=== PATIENT | male | born 1965 | race Caucasian/White ===

== ENCOUNTER 2017-07-06 15:33 | Emergency (ER) | payer SELFPAY ==
[~2017-07-06] VITALS: Ht 167.6 cm; Wt 65.9 kg
[2017-07-06] MEDS ORDERED: MAGNESIUM SULFATE 2 GM, MVI, ADULT NO.1 WITH VIT K 10 ML, THIAMINE HCL 100 MG, FOLIC AC... IV ONE ×5 (16:00)
[2017-07-06 17:40] VITALS: BP 112/68
== END 2017-07-06 19:23 | disposition home or self-care (01) ==
LOC: EMS 15:34
DX: F10.229 Alcohol dependence with intoxication, unspecified (principal); S00.511A Abrasion of lip, initial encounter; Y90.8 Blood alcohol level of 240 mg/100 ml or more; W18.39XA Other fall on same level, initial encounter; Y93.89 Activity, other specified; Y92.89 Other specified places as the place of occurrence of the external cause; Y99.8 Other external cause status
CPT/HCPCS: 96365; 99285; G0480; J3411; J3475; J3490 ×2; J7030

== ENCOUNTER 2017-09-01 11:47 | Emergency (ER) | payer SELFPAY ==
[~2017-09-01] VITALS: Ht 172.7 cm; Wt 72.5 kg
[2017-09-01] MEDS ORDERED: ACYCLOVIR 200 MG CAPSULE PO ONE (12:45)
[2017-09-01 12:51] LABS: BASOPHILS % (AUTO) 3.1 % (0.0-2.0); EOSINOPHILS % (AUTO) 1.4 % (1.0-6.0); HEMATOCRIT 25.2 % (41-53); HEMOGLOBIN 8.3 g/dL (13.5-17.5); LYMPHOCYTES # (AUTO) 0.8 K/uL (1.0-4.8); MEAN CORPUSCULAR HEMOGLOBIN 28.9 pg (26.0-34.0); MEAN CORPUSCULAR VOLUME 88 fL (80-100); MONOCYTES # (AUTO) 0.4 K/uL (0.1-1.0); MONOCYTES % (AUTO) 8.5 % (2.0-9.0); NEUTROPHILS # (AUTO) 3.3 K/uL (1.8-7.7); RED BLOOD CELL COUNT(AUTO) 2.88 MIL/uL (4.50-5.90); RED CELL DISTRIBUTION WIDTH 15.8 % (11.5-14.5)
[2017-09-01 12:56] LABS: ANION GAP 12 mmol/L (8-16); CALCIUM, TOTAL 7.9 mg/dL (8.8-10.5); CARBON DIOXIDE 27 mmol/L (22-29); CHLORIDE 101 mmol/L (98-107); GLOMERULAR FILTR. RATE CALC > 60 mL/min (>60); GLUCOSE,RANDOM 96 mg/dL (70-110); POTASSIUM 3.7 mmol/L (3.5-5.1); SODIUM SERUM 140 mmol/L (136-145); UREA NITROGEN, BLOOD 8 mg/dL (7-18)
[2017-09-01 13:02] LABS: ALANINE AMINOTRANSFERASE 32 U/L (12-78); ALBUMIN 3.3 g/dL (3.4-5.0); ALKALINE PHOSPHATASE 76 U/L (46-116); ASPARTATE AMINOTRANSFERASE 76 U/L (15-37); BILIRUBIN,TOTAL 0.3 mg/dL (0.1-1.0)
[2017-09-01 13:38] LABS: PLATELET COUNT (AUTO) 60 K/uL (150-450)
[2017-09-01 16:12] VITALS: BP 118/78
== END 2017-09-01 17:03 | disposition home or self-care (01) ==
LOC: EMS 11:50
DX: F10.129 Alcohol abuse with intoxication, unspecified (principal); B00.1 Herpesviral vesicular dermatitis; D64.9 Anemia, unspecified; Z59.0 Homelessness
CPT/HCPCS: 36415; 80053; 85025; 99284; G0480

== ENCOUNTER 2017-09-06 18:53 | Emergency (ER) | payer SELFPAY ==
[~2017-09-06] VITALS: Ht 172.7 cm; Wt 79.5 kg
[2017-09-06 19:03] VITALS: BP 140/80
== END 2017-09-06 23:39 | disposition left against medical advice (07) ==
LOC: EMS 18:54
DX: F10.129 Alcohol abuse with intoxication, unspecified (principal); Z53.21 Procedure and treatment not carried out due to patient leaving prior to being seen by health care provider

== ENCOUNTER 2017-09-08 17:51 | Emergency (ER) | payer SELFPAY ==
[~2017-09-08] VITALS: Ht 170.2 cm; Wt 65.9 kg
[2017-09-08] MEDS ORDERED: BACITRACIN 0.9 GM PACKET OINTMENT TP ONE (18:30)
[2017-09-08 18:43] LABS: GLUCOSE,POINT OF CARE 96 MG/DL (70-110)
[2017-09-08 18:56] VITALS: BP 138/86
== END 2017-09-08 19:04 | disposition home or self-care (01) ==
LOC: EMS 17:52
DX: S00.511A Abrasion of lip, initial encounter (principal); F10.229 Alcohol dependence with intoxication, unspecified; X58.XXXA Exposure to other specified factors, initial encounter; Y93.89 Activity, other specified; Y92.89 Other specified places as the place of occurrence of the external cause; Y99.8 Other external cause status
CPT/HCPCS: 99283

== ENCOUNTER 2017-09-13 08:41 | Inpatient (IN) | payer SELFPAY ==
[~2017-09-13] VITALS: Ht 167.6 cm; Wt 67.3 kg
[2017-09-13] MEDS ORDERED: MAGNESIUM SULFATE 2 GM, MVI, ADULT NO.1 WITH VIT K 10 ML, THIAMINE HCL 100 MG, FOLIC AC... IV ONE ×5 (09:00)
[2017-09-13 09:08] LABS: GLUCOSE,POINT OF CARE 95 MG/DL (70-110)
[2017-09-13 09:14] LABS: HEMATOCRIT 25.7 % (41-53); HEMOGLOBIN 8.3 g/dL (13.5-17.5); MEAN CORPUSCULAR HEMOGLOBIN 27.5 pg (26.0-34.0); MEAN CORPUSCULAR HGB CONC 32.3 G/dL (31.0-37.0); MEAN CORPUSCULAR VOLUME 85 fL (80-100); PLATELET COUNT (AUTO) 101 K/uL (150-450); RED BLOOD CELL COUNT(AUTO) 3.02 MIL/uL (4.50-5.90); RED CELL DISTRIBUTION WIDTH 16.1 % (11.5-14.5)
[2017-09-13 09:27] LABS: INR 1.3 (0.9-1.1); PROTHROMBIN TIME 13.7 SEC (9.4-11.6)
[2017-09-13 09:31] LABS: ALANINE AMINOTRANSFERASE 89 U/L (12-78); ALBUMIN 2.8 g/dL (3.4-5.0); ALKALINE PHOSPHATASE 112 U/L (46-116); ANION GAP 21 mmol/L (8-16); ASPARTATE AMINOTRANSFERASE 311 U/L (15-37); BILIRUBIN,TOTAL 1.1 mg/dL (0.1-1.0); CALCIUM, TOTAL 8.5 mg/dL (8.8-10.5); CARBON DIOXIDE 17 mmol/L (22-29); CHLORIDE 85 mmol/L (98-107); CREATININE 1.85 mg/dL (0.60-1.30); GLOMERULAR FILTR. RATE CALC 38 mL/min (>60); GLUCOSE,RANDOM 101 mg/dL (70-110); POTASSIUM 3.2 mmol/L (3.5-5.1); TOTAL PROTEIN, SERUM 7.7 g/dL (6.4-8.2); UREA NITROGEN, BLOOD 16 mg/dL (7-18)
[2017-09-13 09:33] LABS: BAND NEUTROPHILS % (MANUAL) 22 % (0-5); LYMPHOCYTES % (MANUAL) 2 % (22-44); MONOCYTES % (MANUAL) 6 % (2-9); SEGMENTED NEUTROPHILS % 70 % (40-70)
[2017-09-13 09:34] LABS: SODIUM SERUM 123 mmol/L (136-145)
[2017-09-13] MEDS ORDERED: SODIUM CHLORIDE 0.9% 1,000 ML IV ONE (10:15)
[2017-09-13 10:16] LABS: AMPHET/METH SCREEN,URINE NEGATIVE (NEGATIVE); BARBITURATE SCREEN, URINE NEGATIVE (NEGATIVE); BENZODIAZEPINES SCREEN,URINE NEGATIVE (NEGATIVE); CANNABINOID SCREEN,URINE NEGATIVE (NEGATIVE); COCAINE SCREEN,URINE NEGATIVE (NEGATIVE); METHADONE SCREEN, URINE NEGATIVE (NEGATIVE); OPIATE SCREEN,URINE NEGATIVE (NEGATIVE)
[2017-09-13 10:17] LABS: PHENCYCLIDINE SCREEN,URINE NEGATIVE (NEGATIVE)
[2017-09-13 10:20] LABS: BILIRUBIN,URINE NEGATIVE (NEGATIVE); GLUCOSE, URINE (UA) NEGATIVE (NEGATIVE); KETONES,URINE NEGATIVE (NEGATIVE); LEUKOCYTE ESTERASE ,URINE SMALL (NEGATIVE); NITRATE,URINE NEGATIVE (NEGATIVE); OCCULT BLOOD,URINE LARGE (NEGATIVE); PROTEIN,URINE SEE CONFIRM (NEGATIVE)
[2017-09-13 10:21] LABS: APPEARANCE,URINE HAZY (CLEAR)
[2017-09-13 10:31] LABS: SULFOSALICYLIC ACID,URINE 3+ (Negative)
[2017-09-13 10:32] LABS: BACTERIA,URINE Many /HPF (None Seen); SQUAMOUS EPITHELIAL CELL,UR Few /LPF (None Seen)
[2017-09-13] MEDS ORDERED: CefTRIAXone SODIUM 1 GM in DEXTROSE 5%-WATER 10 ML IV ONE ×2 (10:45→11:00)
[2017-09-13] MEDS ORDERED: BISACODYL 10 MG RECTAL RECTAL SUPPOSITORY PR PRN (11:00)
[2017-09-13] MEDS ORDERED: ONDANSETRON HCL 4 MG/2 ML VIAL IVP PRN (11:00)
[2017-09-13] MEDS ORDERED: MAGNESIUM HYDROXIDE SUSPENSION 30 ML UDCUP PO PRN (11:00)
[2017-09-13] MEDS ORDERED: ZOLPIDEM TARTRATE 5 MG TABLET PO PRN (11:00)
[2017-09-13 13:24] LABS: CALCIUM, TOTAL 8.3 mg/dL (8.8-10.5); CREATININE 1.45 mg/dL (0.60-1.30); POTASSIUM 3.6 mmol/L (3.5-5.1)
[2017-09-13 13:30] VITALS: BP 156/94
[2017-09-13 13:38] LABS: THYROID STIMULATING HORMONE 1.4 uIU/mL (0.36-3.74)
[2017-09-13] MEDS: ACETAMINOPHEN 325 MG TABLET PO PRN (14:25)
[2017-09-13 16:00] VITALS: BP 110/74
[2017-09-13 16:26] LABS: CREATININE,URINE RANDOM 35.4 mg/dL (30.0-125.0)
[2017-09-13 20:00] VITALS: BP 105/69
[2017-09-13] MEDS: DOCUSATE SODIUM 100 MG CAPSULE PO SCH (20:17)
[2017-09-14] VITALS: BP 138/80
[2017-09-14] MEDS: ACETAMINOPHEN 325 MG TABLET PO PRN ×2 (03:28→18:31)
[2017-09-14 04:00] VITALS: BP 131/82
[2017-09-14 05:21] LABS: HEMATOCRIT 24.3 % (41-53); HEMOGLOBIN 7.9 g/dL (13.5-17.5); MEAN CORPUSCULAR HEMOGLOBIN 27.6 pg (26.0-34.0); MEAN CORPUSCULAR HGB CONC 32.6 G/dL (31.0-37.0); MEAN CORPUSCULAR VOLUME 85 fL (80-100); PLATELET COUNT (AUTO) 79 K/uL (150-450); RED BLOOD CELL COUNT(AUTO) 2.88 MIL/uL (4.50-5.90)
[2017-09-14 05:39] LABS: CALCIUM, TOTAL 8.2 mg/dL (8.8-10.5); CREATININE 1.44 mg/dL (0.60-1.30)
[2017-09-14 07:11] LABS: BAND NEUTROPHILS % (MANUAL) 26 % (0-5); LYMPHOCYTES % (MANUAL) 1 % (22-44); MONOCYTES % (MANUAL) 3 % (2-9); SEGMENTED NEUTROPHILS % 70 % (40-70)
[2017-09-14] MEDS ORDERED: SODIUM CHLORIDE 0.9% 250 ML IV ONE ×3 (07:55→09:47)
[2017-09-14] MEDS: LEVOFLOXACIN 750 MG/D5% WATER 150 ML IV SCH (07:57)
[2017-09-14] MEDS: POTASSIUM CHL 10 MEQ/WATER 50 ML IV SCH ×4 (07:57→14:25)
[2017-09-14 08:00] VITALS: BP 113/76
[2017-09-14] MEDS ORDERED: *CLINICAL-LEVOFLOXACIN IVPB DOSING CLINICAL ONE (08:00)
[2017-09-14] MEDS: DOCUSATE SODIUM 100 MG CAPSULE PO SCH ×2 (08:03→20:27)
[2017-09-14] MEDS: PANTOPRAZOLE SODIUM 40 MG DR TABLET PO SCH (08:03)
[2017-09-14 12:00] VITALS: BP 128/79
[2017-09-14] MEDS: SODIUM CHLORIDE 0.9% 1,000 ML IV SCH (12:57)
[2017-09-14] MEDS ORDERED: LORazepam 2 MG/ML VIAL IVP PRN (15:00)
[2017-09-14 16:00] VITALS: BP 135/83
[2017-09-14 20:00] VITALS: BP 116/71
[2017-09-15] VITALS (7 sets, daily range): BP systolic 114–154; BP diastolic 66–91
[2017-09-15] MEDS: SODIUM CHLORIDE 0.9% 1,000 ML IV SCH (03:18)
[2017-09-15 04:59] LABS: HEMOGLOBIN 8.2 g/dL (13.5-17.5); MEAN CORPUSCULAR HEMOGLOBIN 27.6 pg (26.0-34.0); MEAN CORPUSCULAR HGB CONC 32.8 G/dL (31.0-37.0); MEAN CORPUSCULAR VOLUME 84 fL (80-100); PLATELET COUNT (AUTO) 96 K/uL (150-450); RED BLOOD CELL COUNT(AUTO) 2.97 MIL/uL (4.50-5.90); RED CELL DISTRIBUTION WIDTH 16.2 % (11.5-14.5)
[2017-09-15 05:26] LABS: BAND NEUTROPHILS % (MANUAL) 23 % (0-5); LYMPHOCYTES % (MANUAL) 5 % (22-44); MONOCYTES % (MANUAL) 7 % (2-9); SEGMENTED NEUTROPHILS % 65 % (40-70)
[2017-09-15 05:28] LABS: PLATELET MORPHOLOGY COMMENT LARGE PLTS PRESENT
[2017-09-15 05:34] LABS: ANION GAP 8 mmol/L (8-16); CALCIUM, TOTAL 8.2 mg/dL (8.8-10.5); CARBON DIOXIDE 23 mmol/L (22-29); CHLORIDE 95 mmol/L (98-107); CREATINE KINASE MB 1.2 ng/mL (0-5); CREATINE KINASE, TOTAL 358 U/L (39-308); GLOMERULAR FILTR. RATE CALC 58 mL/min (>60); GLUCOSE,RANDOM 96 mg/dL (70-110); SODIUM SERUM 126 mmol/L (136-145); UREA NITROGEN, BLOOD 27 mg/dL (7-18)
[2017-09-15] MEDS: DOCUSATE SODIUM 100 MG CAPSULE PO SCH ×2 (07:28→20:15)
[2017-09-15] MEDS: LEVOFLOXACIN 750 MG/D5% WATER 150 ML IV SCH (07:34)
[2017-09-15] MEDS: PANTOPRAZOLE SODIUM 40 MG DR TABLET PO SCH (07:53)
[2017-09-15] MEDS: MORPHINE SULFATE 2 MG/ML SYRINGE IVP PRN (09:46)
[2017-09-15] MEDS ORDERED: POTASSIUM CHLORIDE 20 MEQ ER TABLET PO ONE (10:30)
[2017-09-15] MEDS: SODIUM CHLORIDE 1 GM TABLET PO SCH ×2 (10:53→20:15)
[2017-09-15] MEDS: HYDROCODONE/ACETAMINOPHEN 5-325 MG TABLET PO PRN (10:53)
[2017-09-15] MEDS ORDERED: MAGNESIUM SULFATE 2 GM, MVI, ADULT NO.1 WITH VIT K 10 ML, THIAMINE HCL 100 MG, FOLIC AC... IV ONE ×5 (12:30)
[2017-09-15] MEDS: ChlordiazePOXIDE HCL 25 MG CAPSULE PO SCH ×3 (13:22→22:43)
[2017-09-15] MEDS: LORazepam 2 MG/ML VIAL IVP PRN ×3 (14:31→22:44)
[2017-09-16] VITALS: BP 146/75
[2017-09-16] MEDS ORDERED: SODIUM CHLORIDE 0.9% 100 ML ONE (02:14)
[2017-09-16] MEDS: LORazepam 2 MG/ML VIAL IVP PRN ×5 (03:15→21:29)
[2017-09-16 04:00] VITALS: BP 144/99
[2017-09-16 05:22] LABS: ANION GAP 8 mmol/L (8-16); CALCIUM, TOTAL 8.4 mg/dL (8.8-10.5); CARBON DIOXIDE 23 mmol/L (22-29); CHLORIDE 104 mmol/L (98-107); CREATININE 1.18 mg/dL (0.60-1.30); GLOMERULAR FILTR. RATE CALC > 60 mL/min (>60); GLUCOSE,RANDOM 99 mg/dL (70-110); POTASSIUM 3.1 mmol/L (3.5-5.1); SODIUM SERUM 135 mmol/L (136-145); UREA NITROGEN, BLOOD 27 mg/dL (7-18)
[2017-09-16 05:33] LABS: HEMATOCRIT 23.9 % (41-53); HEMOGLOBIN 7.8 g/dL (13.5-17.5); MEAN CORPUSCULAR HEMOGLOBIN 27.8 pg (26.0-34.0); MEAN CORPUSCULAR HGB CONC 32.8 G/dL (31.0-37.0); MEAN CORPUSCULAR VOLUME 85 fL (80-100); PLATELET COUNT (AUTO) 84 K/uL (150-450); RED BLOOD CELL COUNT(AUTO) 2.82 MIL/uL (4.50-5.90); RED CELL DISTRIBUTION WIDTH 16.1 % (11.5-14.5)
[2017-09-16] MEDS: LEVOFLOXACIN 750 MG/D5% WATER 150 ML IV SCH (06:42)
[2017-09-16] MEDS: ChlordiazePOXIDE HCL 25 MG CAPSULE PO SCH ×4 (06:43→23:59)
[2017-09-16] MEDS: DOCUSATE SODIUM 100 MG CAPSULE PO SCH ×2 (07:16→21:29)
[2017-09-16 07:47] LABS: BAND NEUTROPHILS % (MANUAL) 9 % (0-5); EOSINOPHILS % (MANUAL) 3 % (1-6); LYMPHOCYTES % (MANUAL) 8 % (22-44); MONOCYTES % (MANUAL) 15 % (2-9); SEGMENTED NEUTROPHILS % 65 % (40-70)
[2017-09-16 08:00] VITALS: BP 150/94
[2017-09-16] MEDS: PANTOPRAZOLE SODIUM 40 MG DR TABLET PO SCH (08:27)
[2017-09-16] MEDS: SODIUM CHLORIDE 1 GM TABLET PO SCH (08:27)
[2017-09-16] MEDS: HYDROCODONE/ACETAMINOPHEN 5-325 MG TABLET PO PRN (08:27)
[2017-09-16] MEDS: MORPHINE SULFATE 2 MG/ML SYRINGE IVP PRN (09:17)
[2017-09-16] MEDS ORDERED: POTASSIUM CHLORIDE 20 MEQ ER TABLET PO ONE ×3 (11:30→16:15)
[2017-09-16 12:00] VITALS: BP 132/93
[2017-09-16 15:40] LABS: ANION GAP 10 mmol/L (8-16); CALCIUM, TOTAL 8.4 mg/dL (8.8-10.5); CARBON DIOXIDE 22 mmol/L (22-29); CHLORIDE 107 mmol/L (98-107); CREATININE 1.21 mg/dL (0.60-1.30); GLOMERULAR FILTR. RATE CALC > 60 mL/min (>60); GLUCOSE,RANDOM 112 mg/dL (70-110); PHOSPHORUS 2.4 mg/dL (2.5-4.9); POTASSIUM 3.3 mmol/L (3.5-5.1); SODIUM SERUM 139 mmol/L (136-145); UREA NITROGEN, BLOOD 25 mg/dL (7-18)
[2017-09-16 16:00] VITALS: BP 126/71
[2017-09-16] MEDS ORDERED: SODIUM PHOS,M-BASIC-D-BASIC 30 MMOL in DEXTROSE 5%-WATER 250 ML IV ONE (16:30)
[2017-09-16 20:00] VITALS: BP 148/94
[2017-09-16] MEDS: THIAMINE HCL 100 MG TABLET PO SCH (21:29)
[2017-09-16] MEDS ORDERED: SODIUM CHLORIDE 0.9% 250 ML IV ONE (23:42)
[2017-09-17] VITALS (10 sets, daily range): BP systolic 121–139; BP diastolic 73–90
[2017-09-17] MEDS: LORazepam 2 MG/ML VIAL IVP PRN (02:05)
[2017-09-17] MEDS: MORPHINE SULFATE 2 MG/ML SYRINGE IVP PRN (03:00)
[2017-09-17] MEDS: ChlordiazePOXIDE HCL 25 MG CAPSULE PO SCH ×3 (05:06→17:59)
[2017-09-17 06:06] LABS: ALANINE AMINOTRANSFERASE 68 U/L (12-78); ALBUMIN 1.8 g/dL (3.4-5.0); ALKALINE PHOSPHATASE 121 U/L (46-116); ANION GAP 10 mmol/L (8-16); ASPARTATE AMINOTRANSFERASE 96 U/L (15-37); BILIRUBIN,TOTAL 1.1 mg/dL (0.1-1.0); CALCIUM, TOTAL 8.2 mg/dL (8.8-10.5); CARBON DIOXIDE 21 mmol/L (22-29); CHLORIDE 111 mmol/L (98-107); CREATININE 1.22 mg/dL (0.60-1.30); GLOMERULAR FILTR. RATE CALC > 60 mL/min (>60); GLUCOSE,RANDOM 104 mg/dL (70-110); POTASSIUM 3.7 mmol/L (3.5-5.1); SODIUM SERUM 142 mmol/L (136-145); TOTAL PROTEIN, SERUM 6.3 g/dL (6.4-8.2); UREA NITROGEN, BLOOD 22 mg/dL (7-18)
[2017-09-17] MEDS: LEVOFLOXACIN 750 MG/D5% WATER 150 ML IV SCH (06:26)
[2017-09-17] MEDS: FOLIC ACID 1 MG TABLET PO SCH (09:38)
[2017-09-17] MEDS: PANTOPRAZOLE SODIUM 40 MG DR TABLET PO SCH (09:38)
[2017-09-17] MEDS: DOCUSATE SODIUM 100 MG CAPSULE PO SCH ×2 (09:38→21:12)
[2017-09-17] MEDS: POTASSIUM CHLORIDE 10 MEQ ER TABLET PO SCH (09:41)
[2017-09-17] MEDS: THIAMINE HCL 100 MG TABLET PO SCH (21:12)
[2017-09-18] MEDS: ChlordiazePOXIDE HCL 25 MG CAPSULE PO SCH ×5 (00:32→23:50)
[2017-09-18] MEDS ORDERED: SODIUM CHLORIDE 0.9% 50 ML ONE (04:11)
[2017-09-18 04:14] VITALS: BP 124/85
[2017-09-18] MEDS: HYDROCODONE/ACETAMINOPHEN 5-325 MG TABLET PO PRN (04:20)
[2017-09-18] MEDS: LEVOFLOXACIN 750 MG/D5% WATER 150 ML IV SCH (06:31)
[2017-09-18 07:19] VITALS: BP 136/86
[2017-09-18] MEDS: FOLIC ACID 1 MG TABLET PO SCH (08:17)
[2017-09-18] MEDS: POTASSIUM CHLORIDE 10 MEQ ER TABLET PO SCH (08:17)
[2017-09-18] MEDS: DOCUSATE SODIUM 100 MG CAPSULE PO SCH ×2 (08:17→20:30)
[2017-09-18] MEDS: PANTOPRAZOLE SODIUM 40 MG DR TABLET PO SCH (08:17)
[2017-09-18 11:41] VITALS: BP 127/78
[2017-09-18 15:27] VITALS: BP 136/80
[2017-09-18 19:25] VITALS: BP 128/72
[2017-09-18] MEDS: THIAMINE HCL 100 MG TABLET PO SCH (20:30)
[2017-09-18 23:35] VITALS: BP 124/77
[2017-09-19 04:57] VITALS: BP 121/78
[2017-09-19] MEDS: ChlordiazePOXIDE HCL 25 MG CAPSULE PO SCH ×3 (06:07→18:06)
[2017-09-19] MEDS: LEVOFLOXACIN 750 MG/D5% WATER 150 ML IV SCH (06:13)
[2017-09-19 07:50] VITALS: BP 115/70
[2017-09-19] MEDS: POTASSIUM CHLORIDE 10 MEQ ER TABLET PO SCH (08:07)
[2017-09-19] MEDS: DOCUSATE SODIUM 100 MG CAPSULE PO SCH ×2 (08:08→20:00)
[2017-09-19] MEDS: PANTOPRAZOLE SODIUM 40 MG DR TABLET PO SCH (08:08)
[2017-09-19] MEDS: FOLIC ACID 1 MG TABLET PO SCH (08:08)
[2017-09-19 10:34] VITALS: BP 119/79
[2017-09-19 15:20] VITALS: BP 115/70
[2017-09-19 16:08] LABS: BASOPHILS % (AUTO) 0.6 % (0.0-2.0); EOSINOPHILS % (AUTO) 1.3 % (1.0-6.0); HEMATOCRIT 22.6 % (41-53); HEMOGLOBIN 7.3 g/dL (13.5-17.5); LYMPHOCYTES # (AUTO) 0.8 K/uL (1.0-4.8); LYMPHOCYTES % (AUTO) 8.1 % (22.0-44.0); MEAN CORPUSCULAR HEMOGLOBIN 27.1 pg (26.0-34.0); MEAN CORPUSCULAR HGB CONC 32.4 G/dL (31.0-37.0); MEAN CORPUSCULAR VOLUME 84 fL (80-100); MONOCYTES # (AUTO) 1.2 K/uL (0.1-1.0); MONOCYTES % (AUTO) 11.6 % (2.0-9.0); NEUTROPHILS % (AUTO) 78.4 % (40.0-70.0); PLATELET COUNT (AUTO) 300 K/uL (150-450); RED BLOOD CELL COUNT(AUTO) 2.71 MIL/uL (4.50-5.90)
[2017-09-19 16:26] LABS: ANION GAP 9 mmol/L (8-16); CARBON DIOXIDE 25 mmol/L (22-29); CHLORIDE 107 mmol/L (98-107); CREATININE 1.08 mg/dL (0.60-1.30); GLOMERULAR FILTR. RATE CALC > 60 mL/min (>60); GLUCOSE,RANDOM 110 mg/dL (70-110); POTASSIUM 4.5 mmol/L (3.5-5.1); SODIUM SERUM 141 mmol/L (136-145); UREA NITROGEN, BLOOD 15 mg/dL (7-18)
[2017-09-19 16:28] LABS: CREATININE,URINE RANDOM 72.1 mg/dL (30.0-125.0)
[2017-09-19 16:31] LABS: ALANINE AMINOTRANSFERASE 71 U/L (12-78); ALBUMIN 1.8 g/dL (3.4-5.0); ALKALINE PHOSPHATASE 154 U/L (46-116); ASPARTATE AMINOTRANSFERASE 88 U/L (15-37); BILIRUBIN,TOTAL 0.7 mg/dL (0.1-1.0); TOTAL PROTEIN, SERUM 6.9 g/dL (6.4-8.2)
[2017-09-19] MEDS: THIAMINE HCL 100 MG TABLET PO SCH (20:00)
[2017-09-19 20:01] VITALS: BP 112/72
[2017-09-19 23:54] LABS: FOLATE SERUM 20.8 ng/mL (5.4-); VITAMIN B12 LEVEL > 2000 pg/mL (211-911)
[2017-09-19 23:55] VITALS: BP 131/83
[2017-09-20] MEDS: ChlordiazePOXIDE HCL 25 MG CAPSULE PO SCH ×3 (01:42→10:41)
[2017-09-20] MEDS ORDERED: SODIUM CHLORIDE 0.9% 250 ML IV ONE (04:11)
[2017-09-20 05:07] VITALS: BP 105/69
[2017-09-20] MEDS: LEVOFLOXACIN 750 MG/D5% WATER 150 ML IV SCH (05:51)
[2017-09-20 06:29] LABS: % IRON SATURATION 9.1 % (30-44); IRON, SERUM 21 mcg/dL (50-175); TOTAL IRON BINDING CAPACITY 230 mcg/dL (250-450)
[2017-09-20 07:24] VITALS: BP 107/69
[2017-09-20] MEDS: FOLIC ACID 1 MG TABLET PO SCH (08:14)
[2017-09-20] MEDS: DOCUSATE SODIUM 100 MG CAPSULE PO SCH (08:14)
[2017-09-20] MEDS: PANTOPRAZOLE SODIUM 40 MG DR TABLET PO SCH (08:14)
[2017-09-20] MEDS: POTASSIUM CHLORIDE 10 MEQ ER TABLET PO SCH (08:14)
[2017-09-20] MEDS ORDERED: SOD FERRIC GLUC COMPLX/SUCROSE 125 MG in SODIUM CHLORIDE 0.9% 100 ML IV SCH (10:00)
[2017-09-20 11:26] VITALS: BP 109/71
[2017-09-20 12:04] LABS: ANION GAP 11 mmol/L (8-16); CALCIUM, TOTAL 7.9 mg/dL (8.8-10.5); CARBON DIOXIDE 22 mmol/L (22-29); CHLORIDE 107 mmol/L (98-107); CREATININE 1.04 mg/dL (0.60-1.30); GLOMERULAR FILTR. RATE CALC > 60 mL/min (>60); GLUCOSE,RANDOM 93 mg/dL (70-110); POTASSIUM 4.3 mmol/L (3.5-5.1); SODIUM SERUM 140 mmol/L (136-145); UREA NITROGEN, BLOOD 16 mg/dL (7-18)
[2017-09-20 16:24] VITALS: BP 106/76
[2017-09-20] MEDS ORDERED: LIB25 PO ×2 (16:51)
[2017-09-20] MEDS ORDERED: THIA100T67 PO (16:52)
[2017-09-20] MEDS ORDERED: FOLI1 PO (16:53)
[2017-09-20] MEDS ORDERED: ChlordiazePOXIDE HCL 25 MG CAPSULE PO SCH (21:00)
== END 2017-09-20 17:45 | disposition home or self-care (01) | DRG 871 ==
LOC: EMS 08:41 → ICU 10:51 → 5S 09-17 18:38 → 6N 09-19 19:05
PROVIDERS: ADMIT Internal Medicine; ATTEND Internal Medicine
DX: A41.9 Sepsis, unspecified organism (principal); S06.5X0A Traumatic subdural hemorrhage without loss of consciousness, initial encounter; N17.0 Acute kidney failure with tubular necrosis; E87.2 Acidosis; F10.239 Alcohol dependence with withdrawal, unspecified; N39.0 Urinary tract infection, site not specified; D64.9 Anemia, unspecified; D69.6 Thrombocytopenia, unspecified; E86.0 Dehydration; E86.1 Hypovolemia; R80.9 Proteinuria, unspecified; E87.6 Hypokalemia; R32 Unspecified urinary incontinence; Z59.0 Homelessness; W18.39XA Other fall on same level, initial encounter; Y93.89 Activity, other specified; Y92.89 Other specified places as the place of occurrence of the external cause; Y99.8 Other external cause status
CPT/HCPCS: 70450; 72125; 76770; 82533; 82570; 82607; 82746; 83540; 83550; 83735; 83930; 83935; 84100; 84133; 84156; 84300; 84443; 84540; 87040; 87081; 87086; 93005; 96374; 96375; 97163; 99291; G0480; J0696; J1956; J2060; J2270; J2916; J3411; J3475; J3480; J3490; J7030; J7050; J7060

== ENCOUNTER 2018-04-11 06:53 | Emergency (ER) | payer MEDICAID ==
[~2018-04-11] VITALS: Ht 170.2 cm; Wt 72.7 kg
[~2018-04-11 06:53] MED LIST: FOLI1 PO; LIB25 PO; THIA100T67 PO
[2018-04-11] MEDS ORDERED: LISI1TAB11 PO (07:06)
[2018-04-11] MEDS ORDERED: MethylPREDNISolone SOD SUCC 125 MG/2 ML VIAL IVP ONE (07:30)
[2018-04-11] MEDS ORDERED: FAMOTIDINE 10 MG/ML 2 ML VIAL IVP ONE (07:30)
[2018-04-11] MEDS ORDERED: DiphenhydrAMINE HCL 50 MG/ML VIAL IVP ONE (07:30)
[2018-04-11 07:53] LABS: BASOPHILS % (AUTO) 1.2 % (0.0-2.0); EOSINOPHILS % (AUTO) 6.1 % (1.0-6.0); HEMATOCRIT 36.3 % (41-53); HEMOGLOBIN 12.4 g/dL (13.5-17.5); LYMPHOCYTES # (AUTO) 0.6 K/uL (1.0-4.8); MEAN CORPUSCULAR HEMOGLOBIN 30.4 pg (26.0-34.0); MEAN CORPUSCULAR HGB CONC 34.1 G/dL (31.0-37.0); MEAN CORPUSCULAR VOLUME 89 fL (80-100); MONOCYTES # (AUTO) 0.6 K/uL (0.1-1.0); MONOCYTES % (AUTO) 19.8 % (2.0-9.0); NEUTROPHILS # (AUTO) 1.6 K/uL (1.8-7.7); NEUTROPHILS % (AUTO) 53.9 % (40.0-70.0); PLATELET COUNT (AUTO) 129 K/uL (150-450); RED BLOOD CELL COUNT(AUTO) 4.07 MIL/uL (4.50-5.90); RED CELL DISTRIBUTION WIDTH 18.7 % (11.5-14.5)
[2018-04-11 08:01] LABS: ANION GAP 5 mmol/L (8-16); CALCIUM, TOTAL 8.9 mg/dL (8.8-10.5); CARBON DIOXIDE 30 mmol/L (22-29); CHLORIDE 100 mmol/L (98-107); CREATININE 0.85 mg/dL (0.60-1.30); GLOMERULAR FILTR. RATE CALC > 60 mL/min (>60); GLUCOSE,RANDOM 82 mg/dL (70-110); POTASSIUM 3.7 mmol/L (3.5-5.1); SODIUM SERUM 135 mmol/L (136-145); UREA NITROGEN, BLOOD 9 mg/dL (7-18)
[2018-04-11 08:06] LABS: ALANINE AMINOTRANSFERASE 29 U/L (12-78); ALBUMIN 3.6 g/dL (3.4-5.0); ALKALINE PHOSPHATASE 75 U/L (46-116); ASPARTATE AMINOTRANSFERASE 45 U/L (15-37); BILIRUBIN,TOTAL 0.2 mg/dL (0.1-1.0); TOTAL PROTEIN, SERUM 8.2 g/dL (6.4-8.2)
[2018-04-11 10:25] VITALS: BP 145/94
== END 2018-04-11 11:02 | disposition home or self-care (01) ==
LOC: EMS 06:53
DX: T78.3XXA Angioneurotic edema, initial encounter (principal); F10.229 Alcohol dependence with intoxication, unspecified; D61.818 Other pancytopenia; K70.30 Alcoholic cirrhosis of liver without ascites; Z59.0 Homelessness; Z79.899 Other long term (current) drug therapy; Y90.4 Blood alcohol level of 80-99 mg/100 ml
CPT/HCPCS: 36415; 80053; 85025; 96374; 96375; 99283; G0480; J1200; J2930; J3490

== ENCOUNTER 2018-07-09 15:18 | Emergency (ER) | payer MEDICAID ==
[~2018-07-09 15:18] MED LIST changes: -FOLI1 PO; -LIB25 PO; +LISI1TAB11 PO; -THIA100T67 PO
[2018-07-09 16:16] VITALS: BP 126/85
== END 2018-07-09 16:29 | disposition home or self-care (01) ==
LOC: EMS 15:18
DX: B00.9 Herpesviral infection, unspecified (principal); F10.10 Alcohol abuse, uncomplicated; R03.0 Elevated blood-pressure reading, without diagnosis of hypertension; Z59.0 Homelessness; Z88.8 Allergy status to other drugs, medicaments and biological substances

== ENCOUNTER 2019-08-28 16:47 | Emergency (ER) | payer MEDICAID ==
[~2019-08-28] VITALS: Ht 167.6 cm; Wt 81.8 kg
[2019-08-28] MEDS ORDERED: BACITRACIN 0.9 GM PACKET OINTMENT TP ONE (19:15)
[2019-08-28 20:00] VITALS: BP 135/88
== END 2019-08-28 20:00 | disposition home or self-care (01) ==
LOC: EMS 16:48
DX: F10.229 Alcohol dependence with intoxication, unspecified (principal); Y90.9 Presence of alcohol in blood, level not specified

== ENCOUNTER 2019-12-24 21:11 | Emergency (ER) | payer MEDICAID ==
[~2019-12-24] VITALS: Ht 170.2 cm; Wt 77.3 kg
[2019-12-24 22:17] LABS: GLUCOSE,POINT OF CARE 99 MG/DL (70-110)
[2019-12-25 06:00] VITALS: BP 124/77
== END 2019-12-25 06:29 | disposition home or self-care (01) ==
LOC: EMS 21:13
DX: F10.129 Alcohol abuse with intoxication, unspecified (principal); Z59.0 Homelessness; Z88.5 Allergy status to narcotic agent; Y90.8 Blood alcohol level of 240 mg/100 ml or more
CPT/HCPCS: 82962; 99285; G0480

== ENCOUNTER 2024-05-10 12:07 | Emergency (ER) | payer MEDICAID, OTHER ==
[~2024-05-10] VITALS: Ht 170.2 cm; Wt 79.5 kg
[2024-05-10 12:48] VITALS: BP 102/65; PULSE 79; RESP 16; TEMP 97.5; O2SAT 95
== END 2024-05-10 13:14 | disposition left against medical advice (07) ==
LOC: EMS 12:08
DX: F10.129 Alcohol abuse with intoxication, unspecified (principal); Z53.21 Procedure and treatment not carried out due to patient leaving prior to being seen by health care provider; Y90.9 Presence of alcohol in blood, level not specified